=== PATIENT | male | born 1940 | race Caucasian/White ===

== ENCOUNTER 2018-11-13 14:41 | Emergency (ER) | payer OTHER ==
[~2018-11-13] VITALS: Ht 177.8 cm; Wt 81.2 kg
--- NOTE | 2018-11-13 14:56 | NUR ---
BIB [facility]60 FROM HOME, C/O ABDOMINAL PAIN AND DIARRHEA SINCE THIS MORNING. PAIN AT [facility] AND FEELS DULL. DENIES RELIEF WITH PAIN MEDS. DENIES N/V. NO ACUTE DISTRESS NOTED. MADE COMFORTABLE AND READY FOR EVAL.
[2018-11-13 15:22] LABS: BASOPHILS % (AUTO) 0.3 % (0.0-2.0); EOSINOPHILS % (AUTO) 6.4 % (0.0-6.0); HEMATOCRIT 42 % (39-51); LYMPHOCYTES # (AUTO) 1.3 /CMM (0.8-4.8); LYMPHOCYTES % (AUTO) 19.2 % (20.0-44.0); MEAN CORPUSCULAR HGB CONC 34 g/dl (31.0-36.0); MEAN CORPUSCULAR VOLUME 94 fL (80-96); MONOCYTES # (AUTO) 0.6 /CMM (0.1-1.30); MONOCYTES % (AUTO) 9.3 % (2.0-12.0); NEUTROPHILS # (AUTO) 4.5 /CMM (1.8-8.9); NEUTROPHILS % (AUTO) 64.8 % (43.0-81.0); PLATELET COUNT (AUTO) 247 /CMM (150-450); RED BLOOD CELL COUNT(AUTO) 4.42 MIL/uL (4.5-6.0)
[2018-11-13 15:28] LABS: CALCIUM, SERUM 9.2 mg/dL (8.5-10.1); CARBON DIOXIDE 23 mmol/L (21-32); CHLORIDE 107 mmol/L (98-107); CREATININE 0.9 mg/dL (0.6-1.3); GLUCOSE 108 mg/dL (74-106); POTASSIUM 4.8 mmol/L (3.5-5.1); SODIUM SERUM 142 mmol/L (136-145); UREA NITROGEN, BLOOD 27 mg/dL (7-18)
[2018-11-13] MEDS ORDERED: IV NS 0.9% 1,000 ML BAG IV ONE (15:30)
[2018-11-13] MEDS ORDERED: MORPHINE SULFATE INJ 2 MG/ML DISP.SYRIN IV ONE (15:30)
[2018-11-13] MEDS ORDERED: ONDANSETRON HCL/PF 4 MG/2 ML VIAL IVP ONE (15:30)
[2018-11-13 15:34] LABS: ALANINE AMINOTRANSFERASE 42 U/L (12-78); ALBUMIN 3.7 g/dL (3.4-5.0); ALKALINE PHOSPHATASE 88 U/L (46-116); ASPARTATE AMINOTRANSFERASE 26 U/L (15-37); BILIRUBIN,DIRECT 0.1 mg/dL (0.0-0.2); BILIRUBIN,TOTAL 0.1 mg/dL (0.2-1.0); LIPASE 80 U/L (73-393); TOTAL PROTEIN, SERUM 7.1 g/dL (6.4-8.2)
[2018-11-13 15:40] LABS: APPEARANCE,URINE Clear (CLEAR); BILIRUBIN,URINE Negative (NEGATIVE); BLOOD, URINE Negative Ery/uL (NEGATIVE); COLOR,URINE Yellow (YELLOW); KETONES,URINE Negative (NEGATIVE); LEUKOCYTE ESTERASE ,URINE Negative (NEGATIVE); NITRITE, URINE Negative (NEGATIVE); PROTEIN,URINE Trace mg/dl (NEGATIVE); UGLUCOSE Negative (NEGATIVE); UROBILINOGEN,URINE 0.2 EU/dL (0.2)
[2018-11-13 15:46] LABS: BACTERIA,URINE Rare /HPF (None Seen); RBC,URINE 0-2 /HPF (0-2); SQUAMOUS EPITHELIAL CELL,UR Rare /HPF (None Seen); WBC,URINE 0-2 /HPF (0-3)
[2018-11-13] MEDS ORDERED: MORPHINE SULFATE INJ 2 MG/ML DISP.SYRIN ONE (15:58)
[2018-11-13] MEDS ORDERED: ONDANSETRON HCL/PF 4 MG/2 ML VIAL ONE (15:58)
--- NOTE | 2018-11-13 16:00 | NUR ---
PT APPEARS SLIGHTLY ANXIOUS, HYPERVENTILATING. ENCOURAGED HIM TO TAKE SLOW, DEEP BREATHS. VSS. WILL CONT TO MONITOR.
[2018-11-13] MEDS ORDERED: AMOX/CLAVULANATE 875 MG TABLET ONE (16:56)
[2018-11-13] MEDS ORDERED: AMOX/CLAVULANATE 875 MG TABLET PO ONE (17:00)
--- NOTE | 2018-11-13 17:10 | NUR ---
IV removed. Catheter intact and site benign. Pressure and 4x4 applied to site. No bleeding noted.Patient discharged to home in stable condition. Written and verbal after care instructions given. Patient verbalizes understanding of instruction.
[2018-11-13 19:35] VITALS: BP 132/76
== END 2018-11-13 17:10 | disposition home or self-care (01) ==
LOC: ER 14:54
DX: R10.32 Left lower quadrant pain (principal); R19.7 Diarrhea, unspecified; I10 Essential (primary) hypertension; F41.9 Anxiety disorder, unspecified
CPT/HCPCS: 36415; 71045; 74176; 80048; 80076; 81001; 83690; 85025; 93005; 96361; 96374; 96375; 99284; J2270; J2405; J7030; 81000-TC

== ENCOUNTER 2021-01-09 19:43 | Emergency (ER) | payer OTHER ==
[~2021-01-09] VITALS: Ht 175.3 cm; Wt 81.6 kg
--- NOTE | 2021-01-09 19:59 | NUR ---
[facility] HOME C/O DIZZINESS & LOW BP. 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 -N/V. PT A/OX3
--- NOTE | 2021-01-09 20:25 | NUR ---
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
[2021-01-09] MEDS ORDERED: IV NS 0.9% 1,000 ML BAG IV ONE (20:30)
--- NOTE | 2021-01-09 20:33 | NUR ---
BLANCA #18G BLOODWORK COLLECTED BY DISTANCE EDUCATION COORDINATOR
[2021-01-09 20:37] LABS: BASOPHILS % (AUTO) 0.3 % (0.0-2.0); EOSINOPHILS % (AUTO) 3.3 % (0.0-6.0); HEMATOCRIT 36 % (39-51); HEMOGLOBIN 11.7 g/dL (13.5-17.5); LYMPHOCYTES # (AUTO) 1.4 K/uL (0.8-4.8); LYMPHOCYTES % (AUTO) 20.9 % (20.0-44.0); MEAN CORPUSCULAR HGB CONC 33 g/dl (31.0-36.0); MEAN CORPUSCULAR VOLUME 92 fL (80-96); MONOCYTES # (AUTO) 0.8 K/uL (0.1-1.30); MONOCYTES % (AUTO) 12.2 % (2.0-12.0); NEUTROPHILS # (AUTO) 4.2 K/uL (1.8-8.9); NEUTROPHILS % (AUTO) 63.3 % (43.0-81.0); PLATELET COUNT (AUTO) 255 K/uL (150-450); RED BLOOD CELL COUNT(AUTO) 3.86 MIL/uL (4.5-6.0); WHITE BLOOD COUNT (AUTO) 6.7 K/uL (4.3-11.0)
[2021-01-09 20:53] LABS: CALCIUM, SERUM 8.3 mg/dL (8.5-10.1); CARBON DIOXIDE 24 mmol/L (21-32); CHLORIDE 101 mmol/L (98-107); CREATININE 1.3 mg/dL (0.6-1.3); GLUCOSE 117 mg/dL (74-106); POTASSIUM 3.8 mmol/L (3.5-5.1); SODIUM SERUM 135 mmol/L (136-145); UREA NITROGEN, BLOOD 14 mg/dL (7-18)
[2021-01-09 20:59] LABS: ALANINE AMINOTRANSFERASE 9 U/L (12-78); ALKALINE PHOSPHATASE 118 U/L (46-116); ASPARTATE AMINOTRANSFERASE 26 U/L (15-37); BILIRUBIN,DIRECT 0.1 mg/dL (0.0-0.2); BILIRUBIN,TOTAL 0.1 mg/dL (0.2-1.0); TOTAL PROTEIN, SERUM 5.9 g/dL (6.4-8.2)
--- NOTE | 2021-01-09 21:08 | NUR ---
ELIZABETH WOODY - DAUGHTER [phone]
--- NOTE | 2021-01-09 22:21 | NUR ---
COVID SWAB DONE
--- NOTE | 2021-01-10 04:00 | NUR ---
followed up with CM still awaiting room at the [facility]
--- NOTE | 2021-01-10 05:41 | NUR ---
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
--- NOTE | 2021-01-10 05:41 | NUR ---
PT ACCEPTED AT [facility]. PT IS GOING TO ROOM 210-B. REPORT TO NURSE MUNOZ AT [phone]
--- NOTE | 2021-01-10 06:41 | NUR ---
GAVE REPORT TO [facility] FOR AMAYA.
[2021-01-10] MEDS ORDERED: AMLODIPINE BESYLATE 5 MG TABLET ONE (07:23)
[2021-01-10 07:30] VITALS: BP 173/96
[2021-01-10] MEDS ORDERED: AMLODIPINE BESYLATE 5 MG TABLET PO ONE (07:30)
[2021-01-10] MEDS ORDERED: QUET25TA PO (07:56)
[2021-01-10] MEDS ORDERED: QUET50TA PO (07:56)
[2021-01-10] MEDS ORDERED: OLME20TA23 PO (07:56)
[2021-01-10] MEDS ORDERED: DONE10TA44 PO (07:56)
[2021-01-10] MEDS ORDERED: GABA-532 PO (07:56)
[2021-01-10] MEDS ORDERED: CARB1TAB21 PO (07:56)
[2021-01-10] MEDS ORDERED: HYDR100T27 PO (07:56)
[2021-01-10] MEDS ORDERED: PRIM250T8 PO (07:56)
[2021-01-10] MEDS ORDERED: DUTA0.5C37 PO (07:56)
[2021-01-10] MEDS ORDERED: ATOR10TA PO (07:56)
[2021-01-10] MEDS ORDERED: TAMS-12 PO (07:56)
[2021-01-10] MEDS ORDERED: MIRT-90 PO (07:56)
--- NOTE | 2021-01-10 09:26 | NUR ---
PICKED BY [facility] IN STABLE CONDITION, REPORT GIVEN
== END 2021-01-10 09:27 | disposition short-term general hospital (02) ==
LOC: ER 19:59
DX: R42 Dizziness and giddiness (principal); E86.0 Dehydration; D64.9 Anemia, unspecified; Z82.49 Family history of ischemic heart disease and other diseases of the circulatory system; J98.11 Atelectasis; Z20.822 Contact with and (suspected) exposure to COVID-19; I10 Essential (primary) hypertension; F41.9 Anxiety disorder, unspecified
CPT/HCPCS: 36415; 70450; 71045; 80048; 80076; 82962; 84484; 85025; 85730; 87426; 93005; 96360; 99285; J7030; C9803